=== PATIENT | female | born 1980 | race American Indian/Alaskan Native ===

== ENCOUNTER 2017-11-16 12:13 | Emergency (ER) | payer MEDICAID, OTHER ==
[2017-11-16] MEDS ORDERED: BENADRYL PO ONE (15:16)
[2017-11-16] MEDS ORDERED: PEPCID PO ONE (15:16)
--- NOTE | 2017-11-16 15:27 | Emergency Department Report ---
ED Allergic Reaction HPI - General Chief complaint: Extremity Injury, Upper Stated complaint: INSECT BITE Time Seen by Provider: 11/16/17 15:07 Source: patient Mode of arrival: Ambulatory Limitations: No Limitations - History of Present Illness Initial Comments: 37-year-old female with no significant past medical history came for an insect bite on the right hand. Patient states that she was outside and got bit by an insect. 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 Patient states she took some Benadryl and it helped her with itching. Patient denies any nausea vomiting chest pain shortness of breath. She denies any fever or chills. Patient is under no acute distress. MD Complaint: allergic reaction -: Gradual Exposure: insect bite Symptoms: rash, itching Severity: mild Treatment Prior to Arrival: benadryl Previous Allergy History: none - Related Data Previous Rx's Medication Instructions Recorded Last Taken Type Cephalexin [Keflex] 500 mg PO Q12HR #10 cap 11/16/17 Unknown Rx methylPREDNISolone [Medrol] 4 mg PO QDAY #1 tab.ds.pk 11/16/17 Unknown Rx Allergies Allergy/AdvReac Type Severity Reaction Status Date / Time acetaminophen Allergy Swelling Verified 11/16/17 12:32 [From Tylenol-Codeine #3] codeine Allergy Swelling Verified 11/16/17 12:32 [From Tylenol-Codeine #3] iodine Allergy Swelling Verified 11/16/17 12:32 shellfish derived Allergy Swelling Verified 11/16/17 12:32 strawberry Allergy Swelling Verified 11/16/17 12:32 ED Review of Systems ROS: Stated complaint: INSECT BITE Other details as noted in HPI Constitutional: denies: chills, diaphoresis, fever, malaise, weakness Eyes: denies: eye pain, eye discharge, vision change ENT: denies: ear pain, throat pain Respiratory: denies: cough, shortness of breath, wheezing Cardiovascular: denies: chest pain, palpitations, dyspnea on exertion, edema, syncope Endocrine: no symptoms reported Gastrointestinal: denies: abdominal pain, nausea, diarrhea Genitourinary: denies: urgency, dysuria, discharge Musculoskeletal: denies: back pain, joint swelling, arthralgia Skin: denies: rash, lesions Neurological: denies: headache, weakness, paresthesias Psychiatric: denies: anxiety, depression Hematological/Lymphatic: denies: easy bleeding, easy bruising ED Past Medical Hx - Past Medical History Previous Medical History?: Yes Hx Asthma: Yes - Surgical History Past Surgical History?: Yes Additional Surgical History: gastric bypass - Social History Smoking Status: Current Every Day Smoker Substance Use Type: None - Medications Home Medications: Home Medications Medication Instructions Recorded Confirmed Last Taken Type Cephalexin [Keflex] 500 mg PO Q12HR #10 cap 11/16/17 Unknown Rx methylPREDNISolone [Medrol] 4 mg PO QDAY #1 tab.ds.pk 11/16/17 Unknown Rx ED Physical Exam - General Limitations: No Limitations General appearance: alert, in no apparent distress - Head Head exam: Present: atraumatic, normocephalic - Eye Eye exam: Present: normal appearance - ENT ENT exam: Present: mucous membranes moist - Neck Neck exam: Present: normal inspection - Respiratory Respiratory exam: Present: normal lung sounds bilaterally. Absent: respiratory distress - Cardiovascular Cardiovascular Exam: Present: regular rate, normal rhythm. Absent: systolic murmur, diastolic murmur, rubs, gallop - GI/Abdominal GI/Abdominal exam: Present: soft, normal bowel sounds - Extremities Exam Extremities exam: Present: normal inspection - Expanded Upper Extremity Exam Right General: Present: normal inspection Shoulder Exam: Present: normal inspection Upper Arm exam: Present: normal inspection Forearm Wrist exam: Present: full ROM. Absent: tenderness, abrasion, laceration , ecchymosis, deformity, crepidus, dislocation, erythema, tenderness over anatomical snuff box, pain with axial thumb loading Hand Wrist exam: Present: tenderness, swelling. Absent: laceration, ecchymosis , deformity, crepidus, dislocation, erythema, amputation, nail avulsion, subungual hematoma, other - Back Exam Back exam: Present: normal inspection - Neurological Exam Neurological exam: Present: alert, oriented X3 - Psychiatric Psychiatric exam: Present: normal affect, normal mood - Skin Skin exam: Present: warm, dry, intact, normal color. Absent: rash ED Course Vital Signs 11/16/17 12:33 Temperature 97.7 F Pulse Rate 88 Respiratory 18 Rate Blood Pressure 121/65 O2 Sat by Pulse 99 Oximetry ED Medical Decision Making - Medical Decision Making 37-year-old female with an allergic reaction. Patient states she got bit by an insect and had swelling and itching on the right hand, good pulses present, trace swelling noted, no erythema noted, no cellulitis noted, good ROM Critical care attestation.: If time is entered above; I have spent that time in minutes in the direct care of this critically ill patient, excluding procedure time. ED Disposition Clinical Impression: Insect bite Disposition: DC-01 TO HOME OR SELFCARE Is pt being admited?: No Does the pt Need Aspirin: No Condition: Stable Prescriptions: Cephalexin [Keflex] 500 mg PO Q12HR #10 cap methylPREDNISolone [Medrol] 4 mg PO QDAY #1 tab.ds.pk Referrals: PRIMARY CAREMD [Primary Care Provider] - 3-5 Days FREDI SILVA JR, MD [Staff Physician] - 3-5 Days
[2017-11-16 17:42] VITALS: BP 120/80
== END 2017-11-16 15:44 | disposition home or self-care (01) ==
LOC: ED 12:13
DX: S60.561A Insect bite (nonvenomous) of right hand, initial encounter (principal); J45.909 Unspecified asthma, uncomplicated; F17.200 Nicotine dependence, unspecified, uncomplicated; Z91.013 Allergy to seafood; Z91.018 Allergy to other foods; Z88.6 Allergy status to analgesic agent; W57.XXXA Bitten or stung by nonvenomous insect and other nonvenomous arthropods, initial encounter; Y93.89 Activity, other specified; Y92.89 Other specified places as the place of occurrence of the external cause; Y99.8 Other external cause status
CPT/HCPCS: 96374; 99282; J2930